=== PATIENT | female | born 1995 | race American Indian/Alaskan Native ===

== ENCOUNTER 2016-11-06 15:53 | Emergency (ER) | payer OTHER ==
[2016-11-06 16:05] VITALS: BP 140/79
[2016-11-06] MEDS ORDERED: NORCO 5/325 PO ONE (19:09)
[2016-11-06] MEDS ORDERED: XYLOCAINE 2%/ EPI 1:200,000 INFILTRATI ONE (19:10)
[2016-11-06] MEDS ORDERED: NACL 0.9% IR ONE (19:10)
--- NOTE | 2016-11-06 19:15 | Emergency Department Report ---
- General Chief Complaint: Wound/Laceration Stated Complaint: INJURY FROM FALL OFF SKATEBOARD Time Seen by Provider: 11/06/16 18:55 Source: patient Mode of arrival: Wheelchair Limitations: No Limitations - History of Present Illness Initial Comments: This is a 21-year-old female that presents status post fall from a skateboard. Patient states has pain on the right side of her eyelid. Present with a 2 cm laceration of the right eyebrow. Time of occurrence was around 2 PM today. Denies any loss of consciousness. Denies nausea vomiting. Denies any head trauma. Denies any dizziness. Patient has a pain to the laceration site of the right eyebrow 8 out of 10. Father is by the bedside the patient. Father states no abnormal behavior. Onset/Timin (PM) -: This afternoon Location: other (right eyebrow) 1 - [address]: [place] Patient Tetanus UTD: Yes (patient stated last tetanus shot was last year when she got bit by a snake) Context: accidental Associated Symptoms: pain. denies: loss of feeling/numbness, suspect foreign body present, unable to move injured part, weakness followed by dizziness, nausea/vomiting, fever - Related Data Previous Rx's Medication Instructions Recorded Last Taken Type Cephalexin [Keflex] 500 mg PO Q12HR #10 cap 11/06/16 Unknown Rx Naproxen [Naprosyn TAB] 375 mg PO PRN PRN #20 tablet 11/06/16 Unknown Rx Allergies Allergy/AdvReac Type Severity Reaction Status Date / Time No Known Allergies Allergy Unverified 11/06/16 19:28 ED Review of Systems ROS: Stated complaint: INJURY FROM FALL OFF SKATEBOARD Other details as noted in HPI Comment: All other systems reviewed and negative Constitutional: no symptoms reported Eyes: denies: eye pain, eye discharge, vision change ENT: denies: ear pain, throat pain Respiratory: denies: cough, shortness of breath, wheezing Cardiovascular: denies: chest pain, palpitations Endocrine: no symptoms reported Gastrointestinal: denies: abdominal pain, nausea, diarrhea Genitourinary: denies: urgency, dysuria, discharge Musculoskeletal: denies: back pain, joint swelling, arthralgia Skin: denies: rash, lesions ED Past Medical Hx - Past Medical History Previous Medical History?: No - Surgical History Past Surgical History?: No - Social History Smoking Status: Current Every Day Smoker Substance Use Type: None - Medications Home Medications: Home Medications Medication Instructions Recorded Confirmed Last Taken Type Cephalexin [Keflex] 500 mg PO Q12HR #10 cap 11/06/16 Unknown Rx Naproxen [Naprosyn TAB] 375 mg PO PRN PRN #20 tablet 11/06/16 Unknown Rx ED Physical Exam - General Limitations: No Limitations General appearance: alert, in no apparent distress - Head Head exam: Present: atraumatic, normocephalic - Eye Eye exam: Present: normal appearance - ENT ENT exam: Present: mucous membranes moist - Neck Neck exam: Present: normal inspection - Respiratory Respiratory exam: Present: normal lung sounds bilaterally. Absent: respiratory distress - Cardiovascular Cardiovascular Exam: Present: regular rate, normal rhythm. Absent: systolic murmur, diastolic murmur, rubs, gallop - GI/Abdominal GI/Abdominal exam: Present: soft, normal bowel sounds - External exam: Present: normal external exam. Absent: erythema, lesions, lacerations, bleeding - Extremities Exam Extremities exam: Present: normal inspection - Back Exam Back exam: Present: normal inspection - Neurological Exam Neurological exam: Present: alert, oriented X3, CN II-XII intact, normal gait - Psychiatric Psychiatric exam: Present: normal affect, normal mood - Skin Skin exam: Present: warm, dry, intact, normal color. Absent: rash ED Course Vital Signs 11/06/16 11/06/16 16:01 19:28 Temperature 98.5 F Pulse Rate 81 Respiratory 20 18 Rate Blood Pressure 140/79 O2 Sat by Pulse 100 Oximetry - Reevaluation(s) Reevaluation #1: 11/06/16 20:48 After [place] was prescribed patient's level is 0 out of 10. Patient seems very comfortable. No signs of distress or toxic appearance. - Laceration /Wound Repair Right Face Wound Location: face (right eyebrow) Wound Length (cm): 2 Wound's Depth, Shape: superficial Wound Explored: clean Irrigated w/ Saline (ccs): 30 Betadine Prep?: Yes Anesthesia: Lidocaine w/ Epi Volume Anesthetic (ccs): 6 Wound Debrided: minimal Wound Repaired With: sutures Suture Size/Type: 6:0, proline Number of Sutures: 4 Layer Closure?: No Sterile Dressing Applied?: Yes (by the nurse.) ED Medical Decision Making - Medical Decision Making Ed course: 21-year-old female presents with right eyebrow laceration 2 cm. 1- Patient stated last tetanus shot was last year. 2- Nocro was prescribed to patient prior to procedure. 3- Procedure is as follows: Under sterile procedure, I used betadine to clean the area. I flushed the laceration with 0.9% NaCL. I injected 2% lidocaine with epi to the site. I used 6-0 proline to close the laceration. Number of sutures is 4. Patient tolerated well. No acute signs of any distress. 4- I instructed patient to return in 5-7 days for suture removal. 5- I instructed the patient to keep area clean for 24-48 hours. 6- Father and patient understand d/c and plan. At this time there are no questions. 7- instructed patient to watch signs of infection such as edema, periorbital edema, fever or chills, or drainage. If so, report to ER. 8- Prescribed Keflex PO Critical care attestation.: If time is entered above; I have spent that time in minutes in the direct care of this critically ill patient, excluding procedure time. ED Disposition Clinical Impression: Laceration, Pain Disposition: DISCHARGED TO HOME OR SELFCARE Is pt being admited?: No Does the pt Need Aspirin: No Condition: Stable Instructions: Suture Care (ED), Laceration (ED), Naproxen (By mouth) Additional Instructions: Please follow up with her primary care doctor in 3-5 days. Keep area clean for 24-48 hours. Return to emergency room in 5-7 days for suture removal. Come back to emergency room if he see any signs of infection such as redness, swelling, pus, fever, chills. Prescriptions: Cephalexin [Keflex] 500 mg PO Q12HR #10 cap Naproxen [Naprosyn TAB] 375 mg PO PRN PRN #20 tablet PRN Reason: Pain Referrals: PRIMARY CARE, [Primary Care Provider] - 3-5 Days [facility] [Outside] - 3-[address] [facility] [Outside] - 3-5 Days
== END 2016-11-06 21:14 | disposition home or self-care (01) ==
LOC: EDBD 15:53 → ED 15:53
DX: S01.111A Laceration without foreign body of right eyelid and periocular area, initial encounter (principal); F17.200 Nicotine dependence, unspecified, uncomplicated; V00.131A Fall from skateboard, initial encounter; Y93.9 Activity, unspecified; Y92.9 Unspecified place or not applicable; Y99.9 Unspecified external cause status
CPT/HCPCS: 99282